=== PATIENT | male | born 1940 | race Caucasian/White ===

== ENCOUNTER → 2018-02-06 | Outpatient (CLI) | payer OTHER ==
[~2018-02-06] VITALS: Ht 180.3 cm; Wt 90.9 kg
[~2018-02-06] MED LIST: ALDACTONE25 MG; ASPIR 8181 MG; CARVEDILOL3.125 MG; ENTRESTO 24 MG1 EACH; FLECAINIDE ACET50 M1; FLOMAX0.4 MG; FLONASE 0.05%50 MCG NASAL; KLOR-CON 1010 MEQ PO; LASIX 20 MG TAB20 MG PO; PEPCID20 MG; PREVACID15 MG; ZOCOR40 MG
[2018-02-06 08:42] VITALS: BP 125/74
[2018-02-06 09:09] LABS: ABSOLUTE BASOPHILS 0.1 thou/uL (0.0-0.2); ABSOLUTE EOSINOPHILS 0.1 thou/uL (0.0-0.7); ABSOLUTE LYMPHOCYTES 1.9 thou/uL (0.8-5.3); ABSOLUTE MONOCYTES 0.6 thou/uL (0.0-1.2); BASOPHILS 1.2 %; EOSINOPHILS 1.1 %; HEMATOCRIT 43.4 % (42.0-52.0); HEMOGLOBIN 14.9 gm/dL (14.0-18.0); LYMPHOCYTES 28.4 %; MCH 29.8 pg (26.0-34.0); MCHC 34.2 g/dL (28.0-37.0); MONOCYTES 8.6 %; MPV 9.4 fl. (7.2-11.1); NUCLEATED RBCS 0 /100WBC; PLATELET COUNT* 217 thou/uL (150-400); POLYS 60.7 %; RBC 4.99 mil/uL (4.50-6.00); WBC 6.5 thou/uL (4.0-11.0)
[2018-02-06 09:22] LABS: CREATININE 1.1 mg/dL (0.6-1.3); POTASSIUM 4.1 mmol/L (3.5-5.1)
[2018-02-06 09:24] LABS: APTT 27.1 Seconds (25.0-31.3); INR 1.1; PROTIME 10.4 Seconds (9.20-11.50)
[2018-02-06 09:27] LABS: ALBUMIN 3.6 g/dL (3.4-5.0); TOTAL BILIRUBIN 0.4 mg/dL (<0.1-1.0); TOTAL PROTEIN 7.3 g/dL (6.4-8.2)
[2018-02-06 11:16] VITALS: BP 106/81
[2018-02-06 11:34] VITALS: BP 110/79
--- NOTE | 2018-02-06 11:34 | EKG ---
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
--- NOTE | 2018-02-06 11:35 | EKG ---
[place] [address] ELECTROCARDIOGRAM REPORT Name: ROVERTO SMITH Room: 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: : 1940 Requested By: Roly Hudson Order Number: [id number] Amira MD: Roly Hudson Measurements Intervals [place] Rate: 78 P: [place]: 222 QRS: -33 QRSD: 144 T: 134 QT: 416 QTc: 474 Interpretive Statements A-V dual-paced complexes w/ some inhibition No further analysis attempted due to paced rhythm No previous ECG available for comparison Electronically Signed On 02-06-2018 11:34:52 CDT by Roly Hudson [email or web address] <ELECTRONICALLY SIGNED> By: Roly Hudson MD, [facility] 02/06/18 1134 D: [id number] Roly Hudson MD, FACC /EPI
--- NOTE | 2018-02-06 14:00 | H ---
[address] [address] HISTORY AND PHYSICAL Name: ROVERTO SMITH Room: [facility]#: [id number] Admission: 02/06/18 Attend Phys: Roly Hudson MD Discharge: Date of : 39 Report #: [id number] THIS REPORT FOR: //name// CC: Jayne Hudson HISTORY OF PRESENT ILLNESS: The patient is a very pleasant 78-year-old gentleman with history of nonischemic cardiomyopathy. He has class 2 [place] [employer] heart failure. By echocardiogram, his ejection fraction is approximately 25%-30% despite aggressive medical treatment. He has dyspnea on exertion, but no orthopnea. He is not having chest pain. He presents today for ICD placement for primary prevention. Presently, he is not having chest pain. He denies any significant orthopnea or paroxysmal nocturnal dyspnea. He does have frequent PVCs, but has been relatively asymptomatic with his PVCs. PAST MEDICAL HISTORY: 1. Nonischemic cardiomyopathy. 2. Abdominal aortic aneurysm. 3. Bradycardia. 4. Coronary artery disease that has been mild and nonocclusive. 5. Hyperkalemia. 6. Hyperlipidemia. 7. Hypotension. PAST SURGICAL HISTORY: 1. Cardiac catheterization in 2008. 2. Nephrectomy. FAMILY HISTORY: Noncontributory. SOCIAL HISTORY: The patient quit smoking in 1996. He does not drink alcohol. The patient is . His is in attendance with him. ALLERGIES: None documented. CURRENT MEDICATIONS: Aspirin 81 mg daily, carvedilol 3.125 mg b.i.d., Entresto 24/26 mg 1 tablet p.o. b.i.d., simvastatin 40 mg p.o. at bedtime, spironolactone 25 mg p.o. daily, Flomax 0.4 mg daily. REVIEW OF SYSTEMS: A 14-point review of systems is positive for dyspnea, otherwise unremarkable. PHYSICAL EXAMINATION: VITAL SIGNS: Stable. Blood pressure was 104/54, pulse rate [place] 60[place] [address] HISTORY AND PHYSICAL Name: LUISROVERTO Room: [facility]#: [id number] Admission: 02/06/18 Attend Phys: Roly Hudson MD Discharge: Date of : 38 Report #: [id number] GENERAL: This is a pleasant elderly gentleman who is in no distress. Mood and affect appropriate. HEENT: Extraocular muscles intact. Mucous membranes moist. NECK: Shows no jugular venous distention. There are no carotid bruits. CHEST: Reveals clear lung koehler without wheezes or rales. CARDIAC: Reveals irregular rhythm without gallop or murmur. ABDOMEN: Reveals normal bowel sounds. The abdomen is soft and nontender. EXTREMITIES: Reveals no clubbing, cyanosis or edema. Peripheral pulses are 2+ and easily palpable. SKIN: Warm and dry. IMPRESSION AND RECOMMENDATIONS: 1. Nonischemic cardiomyopathy on medical management as outlined above. The patient presents for implantable cardioverter defibrillator placement for primary prevention. 2. Abdominal aortic aneurysm, stable. 3. Mild nonocclusive coronary artery disease, stable. Continue daily aspirin. 4. Hyperlipidemia. Continue Zocor at current dose. <ELECTRONICALLY SIGNED> By: Roly Hudson MD, FACC 02/06/18 1400 0913 0953[facility] Noemi Hudson MD, FACC /nt
--- NOTE | 2018-02-08 14:28 | CARD ---
[address] [address] CARDIAC CATH REPORT Name: ROVERTO SMITH Room: [facility]#: [id number] Admission: 02/06/18 Attend Phys: Roly Hudson MD Discharge: Date of : 39 Report #: [id number] THIS REPORT FOR: //name// APPROVED REPORT Study performed: 02/06/2018 09:14:50 Patient Status: Out-Patient Room #: Event Personnel: Roly Hudson Rim Turning Machine Operator, Rama Hoang RN Tunnel Drier Operator, Alondra Hagan Monitor, Ryan Elliott (R) Scrub Exam: insertion of a dual-chamber ICD Indications: primary prevention The patient is a 78 year-old male with a history of nonischemic cardiomyopathy with ejection fraction of 25-30%.. Patient Info Last EF%: 25-30% Date: Intraoperative Conscious Sedation Sedation start time: 10:05 Case end Time: 10:40 Fentanyl 50 mcg Versed 2 mg Implanted Devices: Biotronik Iperia 7 DRT DF4 pro-MRI, model #3923, serial #[id number]. Biotronik Protego SD 65/18, model #664142, serial #[id number] Biotronik Solia S 53, model #194352, serial #[id number] Procedure After informed consent was obtained the patient was brought to the interventional radiology lab. The area of the left chest was prepped and draped in sterile fashion. Local anesthesia was achieved with 1% lidocaine. Next after an initial incision was made a device pocket was formed over the left pectoralis muscle using (1 dissection. The left subclavian vein was then accessed using a micropuncture kit. Ultimately a safety J guidewire was advanced to the area of the right atrium under fluoroscopic guidance. The guidewire was then externally fixed using a Lu forcep. The micropuncture kit was utilized a second time to access the left subclavian vein. A second safety J guidewire was advanced to the area of the right atrium under fluoroscopic guidance. Next a 7 Gambian tear-away introducer was advanced over the guidewire. The dilator [place] [address] CARDIAC CATH REPORT Name: ROVERTO SMITH [id number] Admission: 02/06/18 Attend Phys: Roly Hudson MD Discharge: Date of : 39 Report #: [id number] and an RV pacing ICD lead advanced to the right ventricular apex under fluoroscopic guidance. The tear-away introducer was then removed. The lead was actively fixed. Thresholds were checked and deemed to be satisfactory. Next a 7 Gambian tear-away introducer was advanced over the remaining guidewire. The dilator and guidewire were removed as an atrial lead was advanced to a secure position within the right atrial appendage. The tear-away introducer was then removed. The lead was actively fixed. Thresholds were checked and deemed to be satisfactory. Next after adequate slack was assured and the atrial and ventricular leads. The leads were secured within the device pocket using the designated cuffs and interrupted stitches of 2-0 silk suture. The device pocket was flushed with antibiotic solution. Next a dual-chamber pacing ICD generator was attached to the atrial and pacing ICD RV lead. The generator and redundant lead were then placed within the device pocket. The deep tissues were then closed using interrupted stitches of 2-0 Vicryl. The skin incision was then closed with a single subcuticular stitch of 4-0 Vicryl. Several Steri-Strips were placed across the incision. A sterile Telfa dressing was then covered with a Tegaderm. Patient tolerated procedure well without complication. Complications The patient tolerated the procedure well and there were no complications associated with the procedure. Findings Pacing mode DDD. Lower pacing rate 65 bpm. Upper tracking rate 130 bpm. Mode switch rate 160 bpm. VF detection rate to 150 bpm. Slow VT detection rate 154 bpm. Fast VT detection rate 176 bpm. Slow VT therap: Monitor. Fast VT therapy: ATPx12, 40Jx8. VF therapies: ATPx1,40Jx8 Conclusion 1. Nonischemic cardiomyopathy. 2. Successful implantation of a dual-[place] [address] CARDIAC CATH REPORT Name: ROVERTO SMITH Room: [facility] Gutiérrez#: [id number] Admission: 02/06/18 Attend Phys: Roly Hudson MD Discharge: Date of : 39 Report #: [id number] Recommendations 1. Follow-up site check in one week. <ELECTRONICALLY SIGNED> By: Roly Hudson MD, [facility] 02/08/18 1428 1428 1428[facility] Hudson MD, [facility] /INF
== END | disposition home or self-care (01) ==
LOC: M.CL 08:20
PROVIDERS: Internal Medicine Cardiovascular Disease
DX: Z45.02 Encounter for adjustment and management of automatic implantable cardiac defibrillator (principal); I49.9 Cardiac arrhythmia, unspecified; I42.9 Cardiomyopathy, unspecified; I25.10 Atherosclerotic heart disease of native coronary artery without angina pectoris; E78.5 Hyperlipidemia, unspecified; Z90.5 Acquired absence of kidney; Z87.891 Personal history of nicotine dependence; Z79.82 Long term (current) use of aspirin; Z79.899 Other long term (current) drug therapy; Z95.5 Presence of coronary angioplasty implant and graft

== ENCOUNTER 2018-07-15 07:11 | Observation (INO) | payer OTHER ==
[~2018-07-15] VITALS: Ht 180.3 cm; Wt 93.9 kg
[~2018-07-15 07:11] MED LIST changes: -KLOR-CON 1010 MEQ PO; -LASIX 20 MG TAB20 MG PO
[2018-07-15 07:18] VITALS: BP 125/73
[2018-07-15 07:38] LABS: ABSOLUTE BASOPHILS 0.1 thou/uL (0.0-0.2); ABSOLUTE LYMPHOCYTES 1.4 thou/uL (0.8-5.3); ABSOLUTE MONOCYTES 0.6 thou/uL (0.0-1.2); ABSOLUTE NEUTROPHILS 4.2 thou/uL (1.6-8.1); BASOPHILS 1.3 %; EOSINOPHILS 0.5 %; HEMATOCRIT 39.3 % (42.0-52.0); HEMOGLOBIN 13.2 gm/dL (14.0-18.0); LYMPHOCYTES 21.7 %; MCH 29.1 pg (26.0-34.0); MCHC 33.5 g/dL (28.0-37.0); MCV 86.9 fL (80.0-100.0); MONOCYTES 9.6 %; MPV 9.4 fl. (7.2-11.1); NUCLEATED RBCS 0 /100WBC; PLATELET COUNT* 164 thou/uL (150-400); POLYS 66.9 %; RBC 4.52 mil/uL (4.50-6.00); RDW-CV 13.5 % (10.5-14.5); WBC 6.2 thou/uL (4.0-11.0)
[2018-07-15 07:53] LABS: ANION GAP 5 mmol/L (7-16); BUN 9 mg/dL (7-18); CALCIUM 9.5 mg/dL (8.5-10.1); CHLORIDE 103 mmol/L (98-107); CO2 27 mmol/L (21-32); CREATININE 1.1 mg/dL (0.6-1.3); GLUCOSE 112 mg/dL (70-99); POTASSIUM 3.8 mmol/L (3.5-5.1); SODIUM 135 mmol/L (136-145)
[2018-07-15 08:02] LABS: ALBUMIN 3.3 g/dL (3.4-5.0); ALKALINE PHOSPHATASE 64 U/L (46-116); NT-PRO BRAIN NAT PEPTIDE 3875 pg/mL (<300); SGOT 18 U/L (15-37); SGPT 19 U/L (30-65); TOTAL BILIRUBIN 0.6 mg/dL (<0.1-1.0); TOTAL PROTEIN 6.6 g/dL (6.4-8.2); TROPONIN-I LEVEL <0.06 ng/mL (<0.06)
[2018-07-15 12:15] VITALS: BP 102/70
--- NOTE | 2018-07-15 13:47 | 2DMMODE ---
[place] [address] 2 D/M-MODE ECHOCARDIOGRAM Name: ROVERTO SMITH Room: [address] IN [facility]#: [id number] Admission: 07/15/18 Attend Phys: Brian Zuniga, Discharge: Date of : 38 Date of Service: 07/15/18 1347 Report #: [id number] THIS REPORT FOR: //name// APPROVED REPORT Study performed: 07/15/2018 10:57:21 EXAM: Comprehensive 2D, Doppler, and color-flow Echocardiogram Patient Location: In-Patient Room #: ER Status: routine BSA: 2.17 HR: 73 bpm BP: 110/67 mmHg Rhythm: NSR Other Information Study Quality: Good Indications Congestive Heart Failure 2D Dimensions IVSd: 12.34 (7-11mm) LVOT Diam: 22.48 (18-24mm) LVDd: 66.47 mm PWd: 11.79 (7-11mm) Ascending Ao: 37.17 (22-36mm) LVDs: 62.51 (25-40mm) Aortic Root: 36.90 mm Volumes Left Atrial Volume (Systole) LA ESV Index: 82.10 mL/m2 Aortic Valve AoV Peak Ike.: 1.39 m/s AO Peak Gr.: 7.77 mmHg LVOT Max P.98 mmHg AO Mean Gr.: 4.81 mmHg LVOT Mean P.13 mmHg LVOT Max V: 1.00 m/s AO V2 VTI: 26.33 cm LVOT Mean V: 0.66 m/s CLIFFORD (VTI): 2.85 cm2 LVOT V1 VTI: 18.89 cm Mitral Valve E/A Ratio: 1.56 MV Decel. Time: 207.19 ms MV E Max Ike.: 0.80 m/[place] [address] 2 D/M-MODE ECHOCARDIOGRAM Name: ROVERTO SMITH Room: [address] IN .R.#: [id number] Admission: 07/15/18 Attend Phys: Brian Zuniga, Discharge: Date of : 38 Date of Service: 07/15/18 1347 Report #: [id number] MV PHT: 60.09 ms MVA (PHT): 3.66 cm2 TDI E/Lateral E': 6.67 E/Medial E': 20.00 Medial E' Ike.: 0.04 m/s Lateral E' Ike.: 0.12 m/s Pulmonary Valve PV Peak Ike.: 0.91 m/s PV Peak Gr.: 3.29 mmHg Tricuspid Valve RAP Estimate: 10.00 mmHg TR Peak Gr.: 26.52 mmHg RVSP: 36.50 mmHg PA Pressure: 36.50 mmHg Left Ventricle Left ventricle is moderately dilated. There is diffuse hypokinesis of left ventricular wall motion There is normal left ventricular wall thickness. Left ventricular systolic function is severely decreased. LVEF is 25%. The left ventricular diastolic function is normal. Right Ventricle Right ventricle is at the upper limits of normal. The right ventricular systolic function is normal. Pacemaker lead is present in the right ventricle. Atria Left atrium is moderately dilated. Right atrium is mildly dilated. Aortic Valve Mild aortic valve sclerosis. No aortic regurgitation is present. There is no aortic valvular stenosis. Mitral Valve The mitral valve is normal in structure. Moderate mitral regurgitation. No evidence of mitral valve stenosis. Tricuspid Valve The tricuspid valve is normal in structure. Trace tricuspid regurgitation. Mild pulmonary hypertension. Pulmonic Valve The pulmonary valve is normal in structure. There [place] [address] 2 D/M-MODE ECHOCARDIOGRAM Name: ROVERTO SMITH Room: [address]#: [id number] Admission: 07/15/18 Attend Phys: Brian Zuniga, Discharge: Date of : 38 Date of Service: 07/15/18 1347 Report #: [id number] valvular regurgitation. Great Vessels The aortic root is normal in size. IVC is dilated and collapses <50% with inspiration. Pericardium There is no pericardial effusion. <Conclusion> Left ventricle is moderately dilated. There is normal left ventricular wall thickness. Left ventricular systolic function is severely decreased. LVEF is 25%. The left ventricular diastolic function is normal. Right ventricle is at the upper limits of normal. Left atrium is moderately dilated. Right atrium is mildly dilated. Mild aortic valve sclerosis. No aortic regurgitation is present. There is no aortic valvular stenosis. The mitral valve is normal in structure. Moderate mitral regurgitation. The tricuspid valve is normal in structure. IVC is dilated and collapses <50% with inspiration. There is no pericardial effusion. There is diffuse hypokinesis of left ventricular wall motion Pacemaker lead is present in the right ventricle. <ELECTRONICALLY SIGNED> By: Enzo Grady MD, FACC 07/15/18 1347 46 46 Enzo Grady MD, FACC /INF
[2018-07-15 14:30] VITALS: BP 102/77
[2018-07-15 16:00] VITALS: BP 102/70
--- NOTE | 2018-07-15 17:27 | EKG ---
[place] [address] ELECTROCARDIOGRAM REPORT Name: ROVERTO SMITH Room: [place] [address] ADM IN .R.#: [id number] Admission: 07/15/18 Attend Phys: Brian Zuniga MD Discharge: Date of : 39 Report #: [id number] THIS REPORT FOR: //name// [facility] ED Test Date: 2018-07-15 Test Time: 07:32:54 Pat Name: ROVERTO SMITH Department: Room: [facility] Gender: Vp Of Marketing: Karlo JONES : 1940 Requested By: Tigre Johnson Order Number: [id number] MD: Enzo Grady Measurements Intervals [place] Rate: 88 P: 37 [place]: 32 QRS: -29 QRSD: 131 T: 136 QT: 402 QTc: 487 Interpretive Statements Ventricular-paced complexes alternate with sinus rhythm No further analysis attempted due to paced rhythm Compared to ECG 02/06/2018 11:22:34 No significant changes Electronically Signed On 07-15-2018 17:27:35 CDT by Enzo Grady [email or web address] <ELECTRONICALLY SIGNED> By: Enzo Grady MD, FAC 07/15/18 1727 0732 0732 Enzo Grady MD, [facility] /EPI
[2018-07-15 20:00] VITALS: BP 102/58
[2018-07-16] VITALS: BP 124/70
[2018-07-16 04:00] VITALS: BP 125/87
[2018-07-16 08:00] VITALS: BP 113/72
[2018-07-16 12:12] VITALS: BP 114/65
[2018-07-16 12:55] VITALS: BP 114/65
[2018-07-16] MEDS ORDERED: LASIX 20 MG TAB20 MG PO (13:41)
[2018-07-16] MEDS ORDERED: KLOR-CON 1010 MEQ PO (13:42)
== END 2018-07-16 14:09 | disposition home or self-care (01) ==
LOC: M.ERS 07:11 → M.TBA-ER 08:20 → M.2W 08:20
PROVIDERS: Emergency Medicine Emergency Medical Services; ADMIT Internal Medicine
DX: I11.0 Hypertensive heart disease with heart failure (principal); I50.23 Acute on chronic systolic (congestive) heart failure; I25.10 Atherosclerotic heart disease of native coronary artery without angina pectoris; R06.03 Acute respiratory distress; J81.1 Chronic pulmonary edema; I42.9 Cardiomyopathy, unspecified; E78.5 Hyperlipidemia, unspecified; I95.9 Hypotension, unspecified; Z72.89 Other problems related to lifestyle; Z87.891 Personal history of nicotine dependence; Z98.890 Other specified postprocedural states

== ENCOUNTER → 2018-10-21 | Outpatient (CLI) | payer OTHER ==
[~2018-10-21] MED LIST changes: +KLOR-CON 1010 MEQ PO; +LASIX 20 MG TAB20 MG PO
[2018-10-21 07:11] LABS: CALCIUM 9.6 mg/dL (8.5-10.1); CREATININE 1.2 mg/dL (0.6-1.3)
--- NOTE | 2018-10-21 17:00 | CARDNUC ---
[place] [address] CARDIAC NUCLEAR IMAGING REPORT Name: ROVERTO SMITH Room: [facility]#: [id number] Admission: 10/21/18 Attend Phys: Roly Hudson, Discharge: Date of : 38 Date of Service: 10/21/18 1700 Report #: [id number] THIS REPORT FOR: //name// APPROVED REPORT Imaging Protocol: Rest Tc-99m/Stress Tc-99m 1 day Study performed: 10/21/2018 07:00:00 Indication: Dyspnea, Fatigue Patient Location: Out-Patient Stress Tech: Meme Stubbs Stress Nurse: Tamia Rubalcava RN NM Tech:FRANKI Berry Ht: 5 ft 11 in Wt: 212 lbs BSA: 2.16 m2 BMI: 29.56 Medical History Medical History: cad Medications: simvastatin, carvedilol, spironolactone Allergies: nkda Cardiac Risk Factors: age, Exercise History: Indeterminate Meds Held (24 hrs): carvedilol Resting Data Rest SPECT myocardial perfusion imaging was performed in supine position 30 minutes following the intravenous injection of 10.7 mCi of Tc-99m Sestamibi. Time of rest injection: 819 Date: 10/21/2018 Time of rest imagin The images were gated to evaluate regional wall motion and calculate left ventricular ejection fraction. Administration Route: IV Administration Site: Right AC Pharmacologic Stress Pharmacologic stress test was performed by injecting Regadenoson 0.4 mg IV push over 10-15 seconds immediately followed by the intravenous injection of 33.1 mCi of Tc-99m Sestamibi. Time of stress injection: 0935 Time of stress imagin Administration Route: IV Administration Site: Right AC Gated Stress SPECT was performed 40 [place] [address] CARDIAC NUCLEAR IMAGING REPORT Name: ROVERTO SMITH Room: [facility] KARL Brock#: [id number] Admission: 10/21/18 Attend Phys: Roly Hudson, Discharge: Date of : 38 Date of Service: 10/21/18 1700 Report #: [id number] injection. The images were gated to evaluate regional wall motion and calculate left ventricular ejection fraction. Prone imaging was performed. Stress Test Details Stress Test: Pharmacologic stress testing performed using 0.4 mg of regadenoson per 5 mL given IV over 10 seconds. Reason for pharmacologic stress test: physical limitation. HR Max Heart Rate (APMHR): 141 bpm Resting HR: 65 bpm Target HR (85% APMHR): 119 bpm Max HR Achieved: 74 bpm % of APMHR: 52 Recovery HR: 87 bpm HR response to stress: Normal HR response to stress BP Resting BP: 113/74 mmHg Max BP: 126/79 mmHg Recovery BP: 139/79 mmHg BP response to stress: Normal blood pressure response to stress. ECG Resting ECG: a paced lbbb Stress ECG: paced transiently ST Change: none Recovery ECG: a paced Recovery ST Change: none Clinical Reason for Termination: Completed protocol Exercise duration: 0 min sec Exercise capacity: 1 METs Nurse Comments pt walks with cane. can not walk on treadmill Stress ECG Conclusion nondiagnostic Study Quality Study: Fair Artifact: Moderate Increased [place] [address] CARDIAC NUCLEAR IMAGING REPORT Name: ROVERTO SMITH Room: [facility]#: [id number] Admission: 10/21/18 Attend Phys: Roly Hudson, Discharge: Date of : 38 Date of Service: 10/21/18 1700 Report #: [id number] At rest, the left ventricular ejection fraction was 25%.. Post stress, the left ventricular ejection was 25%.. SSS: 8 SRS: 7 SDS: 1 TID = 1.01. Perfusion Review of SPECT images reveals a dilated LV chamber on both rest and stress images. There is a large fixed inferior defect on all images including prone imaging, representing possible inferior AK.However the extra cardiac gut uptake is adjacent to the inferior wall and maybe responsible for the abnormal appearance. Wall Motion Global hypokinesis,elevated EDV Nuclear Conclusion ECG Findings: non-diagnostic Clinical Findings: negative for ischemia Nuclear Findings: negative for ischemia Exercise Capacity: not assessed Left Ventricular Function: abnormal Risk Study: high Abnormal study . Findings are likely secondary to a nonischemic cardiomyopathy, as the inferior defect is more likely artifact.Severe LV dysfunction.Clinical correlation recommended. <Conclusion> nondiagnostic <ELECTRONICALLY SIGNED> By: Matthias Fajardo MD, FACC 10/21/181699 99 99 Matthias Fajardo MD, FACC /INF
== END ==
LOC: M.ULTRA 06:44 → M.NUC 08:00
PROVIDERS: Internal Medicine Cardiovascular Disease
DX: I77.811 Abdominal aortic ectasia (principal); R53.83 Other fatigue; Z86.79 Personal history of other diseases of the circulatory system

== ENCOUNTER 2019-09-22 08:16 | Inpatient (IN) | payer OTHER ==
[~2019-09-22] VITALS: Ht 180.3 cm; Wt 92.8 kg
[~2019-09-22 08:16] MED LIST changes: +AUGMENTIN 875-1 EACH PO; +CALCIUM500 M1 PO; +CARVEDILOL3.125 MG PO; +ELIQUIS5 MG PO; +FLOMAX0.4 MG PO; +GAS-X125 M1 PO; +LANSOPRAZOLE15 MG PO; +LISINOPRIL2.5 MG PO; +MELATONIN5 MG SUBLING; +MINOCYCLINE HC100 M2 PO; +SIMVASTATIN40 MG PO; +SPIRONOLACTONE25 M1 PO; +VITAMIN D325 MC3 PO
[2019-09-22 08:21] VITALS: BP 94/65
[2019-09-22] MEDS ORDERED: PACERONE200 MG PO (08:30)
[2019-09-22] MEDS ORDERED: FUROSEMIDE 20 M20 MG PO (08:31)
[2019-09-22] MEDS ORDERED: LEVO-T50 MCG PO (08:32)
[2019-09-22 09:15] LABS: ABSOLUTE BASOPHILS 0.1 thou/uL (0.0-0.2); ABSOLUTE LYMPHOCYTES 0.8 thou/uL (0.8-5.3); ABSOLUTE MONOCYTES 0.9 thou/uL (0.0-1.2); ABSOLUTE NEUTROPHILS 4.6 thou/uL (1.6-8.1); BASOPHILS 1.1 %; EOSINOPHILS 0.4 %; HEMATOCRIT 33.4 % (42.0-52.0); LYMPHOCYTES 12.9 %; MCH 26.6 pg (26.0-34.0); MCHC 32.8 g/dL (28.0-37.0); MCV 81.1 fL (80.0-100.0); MONOCYTES 13.6 %; MPV 8.9 fl. (7.2-11.1); NUCLEATED RBCS 0 /100WBC; PLATELET COUNT* 166 thou/uL (150-400); RBC 4.12 mil/uL (4.50-6.00); RDW-CV 15.2 % (10.5-14.5); WBC 6.4 thou/uL (4.0-11.0)
[2019-09-22 09:26] LABS: CALCIUM 9.4 mg/dL (8.5-10.1); CREATININE 1.9 mg/dL (0.6-1.3); POTASSIUM 3.7 mmol/L (3.5-5.1)
[2019-09-22 09:34] LABS: TOTAL BILIRUBIN 0.8 mg/dL (<0.1-1.0); TOTAL PROTEIN 6.4 g/dL (6.4-8.2)
[2019-09-22 12:34] VITALS: BP 93/68
[2019-09-22 12:50] VITALS: BP 85/64
--- NOTE | 2019-09-22 13:32 | EKG ---
[place] [address] ELECTROCARDIOGRAM REPORT Name: ROVERTO SMITH Room: [address] ADM IN M.R.#: [id number] Admission: 09/22/19 Attend Phys: Fernando Boswlel Discharge: Date of : 38 Report #: [id number] THIS REPORT FOR: //name// [facility] ED Test Date: 2019-09-22 Test Time: 08:53:32 Pat Name: ROVERTO SMITH Department: Room: [facility] Gender: M Direct Support Professional: : 1940 Requested By: Tigre Johnson Order Number: [id number] MD: Brock Scott Measurements Intervals [place] Rate: 82 P: 104 [place]: 21 QRS: -49 QRSD: 207 T: 23 QT: 534 QTc: 624 Interpretive Statements Atrial-ventricular dual-paced rhythm No further analysis attempted due to paced rhythm Baseline wander in lead(s) V2 Compared to ECG 12/02/2018 10:29:56 pvc's no longer present Electronically Signed On 09-22-2019 13:32:33 DEBRANDER by Brock Scott [email or web address] <ELECTRONICALLY SIGNED> By: Brock Scott MD, [facility] 09/22/19 1332 0853 0853 Brock Scott MD, [facility] /EPI
--- NOTE | 2019-09-22 14:59 | CON ---
[address] [address] CONSULTATION Name: ROVERTO SMITH Room: [address] IN M.R.#: [id number] Admission: 09/22/19 Attend Phys: Fernando Boswell Discharge: Date of : 38 Report #: [id number] THIS REPORT FOR: //name// CC: Jayne Fry DATE OF SERVICE: 09/22/2019 HISTORY OF PRESENT ILLNESS: The patient is an 79-year-old white male who came to the Emergency Room today complaining of chest pain. The patient has an extensive past medical history. He has a history of a dilated nonischemic cardiomyopathy. He actually had a heart catheterization back in 2008 that showed minimal coronary artery disease. His first ICD was implanted years ago for primary prevention of sudden . He does have a history of PAF and has been anticoagulated in the past. He apparently never required cardioversion. The patient has a history of PVCs and also has been on amiodarone. He has a history of low blood pressure. He had an echocardiogram done in April of this year showed an ejection fraction of only 15% with moderately severe mitral regurgitation. It was decided at that time to upgrade his ICD to a Bi-V ICD. He was seen by Dr. August in July underwent insertion of a left ventricular lead. Recently, the patient has had increasing shortness of breath. He has had weight gain. Denied any orthopnea, fever, cough, or increasing edema. He actually just saw my nurse practitioner 10 days ago. At that time, Lasix was increased to 80 mg a day for 2 days. Aldactone was increased from half to a full pill a day. However, because of increasing shortness of breath, he came to the Emergency Room today with his and was admitted. He denied chest pain, palpitations, syncope, or bleeding. PAST MEDICAL HISTORY: Otherwise significant for partial nephrectomy for renal cell carcinoma, hernia repair, chronic kidney disease, sleep apnea uses BiPAP. MEDICATIONS: Consists of amiodarone one and a half tablets a day, Eliquis 5 mg twice a day, carvedilol twice a day, Lasix every day, Prevacid, Synthroid, simvastatin, Flomax, Aldactone. ALLERGIES: He has no known drug allergies. FAMILY HISTORY: Negative for heart disease. SOCIAL HISTORY: He is . 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 Quit smoking years ago, rarely drinks alcohol. REVIEW OF SYSTEMS: No history of stroke. He does have sleep apnea. No history of liver disease, GI bleeding. He has chronic kidney disease, history of renal cell carcinoma. No chronic skin condition[place] [address] CONSULTATION Name: ROVERTO SMITH Room: [address]#: [id number] Admission: 09/22/19 Attend Phys: Fernando Boswell Discharge: Date of : 38 Report #: [id number] PHYSICAL EXAMINATION: GENERAL: Revealed an elderly male, lying in bed, appeared in no distress. VITAL SIGNS: He had a blood pressure of 100/60, pulse 60. HEENT: He is anicteric. Conjunctivae pink. Mucous membranes moist. NECK: Veins do not appear distended. CHEST: Decreased breath sounds at bases. CARDIOVASCULAR: Regular rate and rhythm, grade 4 holosystolic murmur at the apex. ABDOMEN: Soft. EXTREMITIES: Had trace edema. Dorsalis pedis pulse cannot be palpated. LABORATORY DATA: His workup in the Emergency Room today included a chest x-ray that shows bilateral pulmonary edema. His lab work; sodium 133, BUN 33, creatinine 1.9. His BNP 9419. White blood cell count 6.4, hematocrit 33.4. IMPRESSION AND RECOMMENDATIONS: 1. Acute on chronic systolic heart failure. The patient is on Coreg. I would consider resuming his ARB. Continue Aldactone. 2. Previous placement of an ICD. 3. History of atrial fibrillation. The patient is on amiodarone and Eliquis. I would decrease the dose of Eliquis due to chronic kidney disease. 4. Hyperlipidemia. The patient is on a statin drug. 5. Sleep apnea. 6. History of renal cell carcinoma. <ELECTRONICALLY SIGNED> By: Brock Scott MD, [facility] 09/22/19 1459 1229 1321Davirandi Scott MD, FACC /nt
[2019-09-22 16:00] VITALS: BP 78/55
--- NOTE | 2019-09-22 17:18 | 2DMMODE ---
[place] [address] 2 D/M-MODE ECHOCARDIOGRAM Name: ROVERTO SMITH Room: [address] IN [facility]#: [id number] Admission: 09/22/19 Attend Phys: Fernando tucker Sa Discharge: Date of : 38 Date of Service: 09/22/19 1717 Report #: [id number] THIS REPORT FOR: //name// APPROVED REPORT Study performed: 09/22/2019 15:55:53 EXAM: Comprehensive 2D, Doppler, and color-flow Echocardiogram Patient Location: In-Patient Room #: [facility] Status: routine BSA: 2.08 HR: 82 bpm BP: 85/64 mmHg Rhythm: NSR Other Information Study Quality: Excellent Indications Dyspnea 2D Dimensions IVSd: 13.84 (7-11mm) LVOT Diam: 20.31 (18-24mm) LVDd: 68.68 mm PWd: 11.01 (7-11mm) Ascending Ao: 39.10 (22-36mm) LVDs: 65.59 (25-40mm) Aortic Root: 38.04 mm Volumes Left Atrial Volume (Systole) LA ESV Index: 105.80 mL/m2 Aortic Valve AoV Peak Ike.: 1.04 m/s AO Peak Gr.: 4.35 mmHg LVOT Max P.60 mmHg AO Mean Gr.: 2.52 mmHg LVOT Mean P.12 mmHg LVOT Max V: 0.81 m/s AO V2 VTI: 12.94 cm LVOT Mean V: 0.47 m/s CLIFFORD (VTI): 2.70 cm2 LVOT V1 VTI: 10.79 cm TDI Medial E' Ike.: 0.05 m/s Lateral E' Ike.: 0.08 m/[place] [address] 2 D/M-MODE ECHOCARDIOGRAM Name: ROVERTO SMTIH Room: [address] [place] ..#: [id number] Admission: 09/22/19 Attend Phys: Fernando tucker Sa Discharge: Date of : 38 Date of Service: 09/22/19 1717 Report #: [id number] Pulmonary Valve PV Peak Ike.: 0.64 m/s PV Peak Gr.: 1.66 mmHg Tricuspid Valve RAP Estimate: 15.00 mmHg TR Peak Gr.: 32.63 mmHg RVSP: 47.00 mmHg PA Pressure: 47.00 mmHg Left Ventricle Left ventricle is mildly dilated. There is severe global hypokinesis of the left ventricle. Moderate concentric left ventricular hypertrophy. Left ventricular systolic function is severely decreased. LVEF is 15-20%. 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 Right Ventricle Right ventricle is dilated. The right ventricular systolic function is normal. Pacemaker lead is present in the right ventricle. Atria Left atrium is severely dilated. Right atrium is dilated. Aortic Valve Mild aortic valve sclerosis. Trace aortic regurgitation. There is no aortic valvular stenosis. Mitral Valve The mitral valve is normal in structure. Moderate mitral regurgitation. No evidence of mitral valve stenosis. Tricuspid Valve The tricuspid valve is normal in structure. Moderate tricuspid regurgitation. estimated pa pressure 40 mm Hg Pulmonic Valve The pulmonary valve is normal in structure. Mild pulmonic regurgitation. Great Vessels Aortic root is mildly dilated. IVC is dilated and collapses <50% with inspiration. Pericardium There is no pericardial effusion. <Conclusion> [place] [address] 2 D/M-MODE ECHOCARDIOGRAM Name: ROVERTO SMITH Room: [address] [place] .R.#: [id number] Admission: 09/22/19 Attend Phys: Fernando tucker Sa Discharge: Date of : 38 Date of Service: 09/22/191716 Report #: [id number] LVEF is 15-20%. Left atrium is severely dilated. Moderate mitral regurgitation. Moderate tricuspid regurgitation. estimated pa pressure 40 mm Hg <ELECTRONICALLY SIGNED> By: Brock Scott MD, [facility] 09/22/191716 16 16 Brock Scott MD, FACC /INF
--- NOTE | 2019-09-22 18:08 | NUR ---
PATIENT RESTING IN BED. PATIENT IS UP STANDBY ASSIST IN ROOM. PATIENT HAS ASYMTOMATIC LOW BLOOD PRESSURE, DOCTORS AWARE. PATIENT DENIES ANY PAIN. PATIENT HAS GOOD APPETITE. PATIENT DENIES ANY NEEDS AT THIS TIME. CALL LIGHT WITHIN REACH.
[2019-09-22 19:40] VITALS: BP 80/56
[2019-09-23] VITALS: BP 105/58
[2019-09-23 04:00] VITALS: BP 91/57
--- NOTE | 2019-09-23 04:44 | NUR ---
PT CARE ASSUMED AT 1930. SAT MAINTAINED IN RA. ALERT AND ORIENTED X4. DENIES PAIN AND SOB. CALL LIGHT WITHIN REACH AND BED IN LOW POSITION. HOURLY ROUNDING DONE FOR PT SAFETY.
[2019-09-23 04:53] LABS: CALCIUM 9.5 mg/dL (8.5-10.1); POTASSIUM 3.8 mmol/L (3.5-5.1)
[2019-09-23 06:39] VITALS: BP 83/57
[2019-09-23 08:57] VITALS: BP 92/62
--- NOTE | 2019-09-23 10:44 | NUR ---
Met with the pt to discuss heart failure medication. Pt's present during discussion. Conversation focused primarily on carvedilol, furosemide and spironolactone. We reviewed rationale for therapies and importance of compliance with prescribed regimen. We discussed possible side effects and potential management strategies. Pt expressed understanding of issues discussed. Left medication information sheet with patient. Pharmacy contact information provided for any further questions or issues. Thank you.
--- NOTE | 2019-09-23 11:46 | NUR ---
MET WITH PT AND TO DISCUSS HOME SITUATION/DC PLANNING. PT LIVES WITH AND USES CPAP. PT IS INDEPENDENT WITH ADLS. PT HAS A NURSE THRU HIS [facility] THAT SEES HIM AT HOME THRU 'CATALOGUE MAKER' PT DENIES ANY DC NEEDS. IS NOT HOMEBOUND. WILL FOLLOW
--- NOTE | 2019-09-23 14:30 | NUR ---
VSS, ASSUMED CARE IN THE AM, ASSESSMENT PERFORMED AND CHARTED, FALL PRECAUTIONS IN PLACE AND CALL LIGHT IN REACH, PT IS A&O4 AND UP AD PANCHO, ON RA AND IS TRACING SR ON THE MONITOR, PT DENIES ANY PAIN, PT GOAL IS TO SIT UP IN CHAIR AND IMPROVE ACTIVITY, WILL FOLLOW WITH PLAN OF CARE.
[2019-09-23 15:31] VITALS: BP 101/67
[2019-09-23 20:00] VITALS: BP 93/67
[2019-09-24] VITALS (7 sets, daily range): BP systolic 80–97; BP diastolic 56–71
[2019-09-24 05:09] LABS: POTASSIUM 3.9 mmol/L (3.5-5.1)
--- NOTE | 2019-09-24 11:56 | NUR ---
ASSUMED CARE OF PATIENT THIS AM AT 0730. PATIENT IS ALERT AND ORIENTED X 4. HE DENIES CHEST PAIN AND SOA. PATIENT IS DIURESSING WELL. HE HAD VOIDED 750 MLS BY 0930. TELE SHOWS V PACED RHYTHM. PATIENT'S BP CONTINUES LOW. HE STATES HE BELIEVES HE IS READY FOR DISCHARGE. GOAL OF WEIGHT LOSS OF [address] MARGARITA HUDDLESTON.
--- NOTE | 2019-09-25 03:15 | NUR ---
PT ALERT ORIENTED. UP AD PANCHO IN ROOM. TELEMETRY SHOWS V PACED. ON RA. CPAP WITH RA. ON FR 1200MLS. WCTM.
[2019-09-25 03:50] VITALS: BP 96/64
[2019-09-25 04:51] LABS: CALCIUM 9.8 mg/dL (8.5-10.1); CREATININE 1.9 mg/dL (0.6-1.3); POTASSIUM 3.7 mmol/L (3.5-5.1)
[2019-09-25 07:50] VITALS: BP 101/67
[2019-09-25 12:18] VITALS: BP 85/58
[2019-09-25] MEDS ORDERED: CARVEDILOL12.5 MG PO (13:41)
[2019-09-25] MEDS ORDERED: FLOMAX0.4 MG PO (13:42)
--- NOTE | 2019-09-25 14:20 | NUR ---
DISCHARGE ORDERS RECEIVED. DISCHARGE COMPLETED CHARTED. DISCHARGE GONE OVER WITH PT, PT COMMUNICATES UNDERSTANDING. PT AWARE OF F/U APPOINTMENTS. TRUCK DRIVER HEAVY REMOVED. IV REMOVED. ALL BELONGINGS GATHERED AND SENT HOME WITH PT. PT LEFT UNIT WALKING WITH NURSING STAFF. PT LEFT HOSPITAL IN TRUCK WITH .
== END 2019-09-25 14:14 | disposition home or self-care (01) | DRG 682 ==
LOC: M.ERS 08:16 → M.TBA-ER 10:21 → M.2W 10:21
PROVIDERS: Emergency Medicine Emergency Medical Services; Internal Medicine Cardiovascular Disease; ADMIT Family Medicine
PROC: 5A09357 Assistance with Respiratory Ventilation, Less than 24 Consecutive Hours, Continuous Positive Airway Pressure (ICD-10-PCS; principal; 2019-09-22)
PROC: 5A09357 Assistance with Respiratory Ventilation, Less than 24 Consecutive Hours, Continuous Positive Airway Pressure (ICD-10-PCS; 2019-09-24)
PROC: 5A09357 Assistance with Respiratory Ventilation, Less than 24 Consecutive Hours, Continuous Positive Airway Pressure (ICD-10-PCS; 2019-09-25)
DX: N17.0 Acute kidney failure with tubular necrosis (principal); I50.23 Acute on chronic systolic (congestive) heart failure; I13.0 Hypertensive heart and chronic kidney disease with heart failure and stage 1 through stage 4 chronic kidney disease, or unspecified chronic kidney disease; E87.1 Hypo-osmolality and hyponatremia; I42.9 Cardiomyopathy, unspecified; I25.10 Atherosclerotic heart disease of native coronary artery without angina pectoris; E78.5 Hyperlipidemia, unspecified; I95.2 Hypotension due to drugs; N18.3 Chronic kidney disease, stage 3 (moderate); G47.33 Obstructive sleep apnea (adult) (pediatric); I27.20 Pulmonary hypertension, unspecified; N40.0 Benign prostatic hyperplasia without lower urinary tract symptoms; Z66 Do not resuscitate; I34.0 Nonrheumatic mitral (valve) insufficiency; Z90.5 Acquired absence of kidney; Z82.49 Family history of ischemic heart disease and other diseases of the circulatory system; Z87.891 Personal history of nicotine dependence; Z95.0 Presence of cardiac pacemaker; Z79.82 Long term (current) use of aspirin; Z79.899 Other long term (current) drug therapy; Z85.528 Personal history of other malignant neoplasm of kidney